=== PATIENT | female | born 1965 | race Caucasian/White ===

== ENCOUNTER 2016-10-02 17:03 | Emergency (ER) | payer OTHER ==
[~2016-10-02] VITALS: Ht 175.3 cm; Wt 153.6 kg
[~2016-10-02 17:03] MED LIST: ADVIL,NUPRIN,M200 MG PO; ALLOPURINOL300 MG PO; BENICAR HCT 201 EACH PO; BENICAR40 MG PO; COLCRYS0.6 MG PO; FUROSEMIDE40 MG; INDOMETHACIN50 MG PO; LASIX40 MG PO; LIDODERM 5% P1 PATCH TD; LISINOPRIL-HCT1 EAC3 PO; VALIUM2 MG PO
[2016-10-02 17:38] LABS: MCH 28.5 PG (29.0-34.0); MCHC 33.1 G/DL (30.0-36.0); MEAN PLAT.VOLUME 8.5 uM^3 (9.5-12.4); PLATELET COUNT 247 K/uL (156-360); RED BLOOD COUNT 4.07 M/uL (3.80-5.20); WHITE BLOOD COUNT 7.9 K/uL (4.1-10.2)
[2016-10-02 17:48] LABS: CHLORIDE 108 mEq/L (99-109); POTASSIUM 4.1 mEq/L (3.7-5.4); SODIUM 140 mEq/L (136-147)
[2016-10-02 17:50] LABS: GLUCOSE 126 mg/dL (70-99)
[2016-10-02 17:51] LABS: ANION GAP 13 MEQ/L (2-14)
[2016-10-02 17:54] LABS: GFR ESTIMATE (CALCULATED) 42 mL/min/
[2016-10-02 17:55] LABS: UREA NITROGEN (BUN) 37 mg/dL (9-23)
[2016-10-02 17:57] LABS: TROP-I INTERPRETATION NEGATIVE; TROPONIN-I < 0.01 ng/mL (0.0-0.30)
[2016-10-02 19:46] LABS: TROP-I INTERPRETATION NEGATIVE; TROPONIN-I < 0.01 ng/mL (0.0-0.30)
[2016-10-02] MEDS ORDERED: ULTRACET1 TABLET PO (20:06)
[2016-10-02 20:25] VITALS: BP 119/72
== END 2016-10-02 20:27 | disposition home or self-care (01) ==
LOC: EME 17:03
PROVIDERS: Physician Assistant Medical
DX: S46.912A Strain of unspecified muscle, fascia and tendon at shoulder and upper arm level, left arm, initial encounter (principal); X58.XXXA Exposure to other specified factors, initial encounter; Y93.84 Activity, sleeping; R00.0 Tachycardia, unspecified; I10 Essential (primary) hypertension
CPT/HCPCS: 71020; 80048; 84484; 85027; 93005; 99281; 99284

== ENCOUNTER 2017-09-07 16:27 | Emergency (ER) | payer OTHER ==
[~2017-09-07] VITALS: Ht 175.3 cm; Wt 149.4 kg
[~2017-09-07 16:27] MED LIST changes: +ULTRACET1 TABLET PO
[2017-09-07 17:28] LABS: HEMATOCRIT 31.1 % (36.0-46.0); HEMOGLOBIN 10.3 G/DL (11.9-15.5); MCH 30.7 PG (29.0-34.0); MCHC 33.1 G/DL (30.0-36.0); MCV 92.8 FL (83-99); PLATELET COUNT 271 K/uL (156-360); RBC DIS.WIDTH-CV 16.4 % (11.8-14.6); RED BLOOD COUNT 3.35 M/uL (3.80-5.20); WHITE BLOOD COUNT 12.9 K/uL (4.1-10.2)
[2017-09-07 17:30] VITALS: BP 106/68
[2017-09-07 17:35] LABS: CHLORIDE 101 mEq/L (99-109); POTASSIUM 4.5 mEq/L (3.7-5.4); SODIUM 138 mEq/L (136-147)
[2017-09-07 17:37] LABS: GLUCOSE 186 mg/dL (70-99)
[2017-09-07 17:41] LABS: CREATININE 1.2 mg/dL (0.6-1.3); GFR ESTIMATE (CALCULATED) 50 mL/min/
[2017-09-07 17:42] LABS: UREA NITROGEN (BUN) 27 mg/dL (9-23)
[2017-09-07 19:32] LABS: APPEARANCE SL.HAZY ((CLEAR)); BILIRUBIN NEGATIVE; BLOOD MODERATE; COLOR YELLOW ((YELLOW)); GLUCOSE (STRIP) NEGATIVE; KETONES NEGATIVE; LEUKOCYTES SMALL; NITRITE NEGATIVE; PROTEIN (STRIP) NEGATIVE; SPECIFIC GRAVITY 1.013 (1.000-1.030)
[2017-09-07 19:43] LABS: BACTERIA RARE /HPF; EPITHELIAL CELLS 1+ /HPF; HYALINE CASTS 15-20 /LPF; MUCUS TRACE /LPF; RED BLOOD CELLS 20-30 /HPF (0-5)
[2017-09-07] MEDS ORDERED: ROBAXIN750 MG PO (20:00)
[2017-09-07] MEDS ORDERED: ULTRAM50 MG PO (20:00)
== END 2017-09-07 22:07 | disposition home or self-care (01) ==
LOC: EME 16:27
PROVIDERS: Emergency Medicine
DX: S39.012A Strain of muscle, fascia and tendon of lower back, initial encounter (principal); G89.29 Other chronic pain; E66.01 Morbid (severe) obesity due to excess calories; Z68.42 Body mass index [BMI] 45.0-49.9, adult; I10 Essential (primary) hypertension; E11.9 Type 2 diabetes mellitus without complications; M10.9 Gout, unspecified; Z86.14 Personal history of Methicillin resistant Staphylococcus aureus infection; Z87.440 Personal history of urinary (tract) infections; Z90.49 Acquired absence of other specified parts of digestive tract; Z88.0 Allergy status to penicillin
CPT/HCPCS: 80048; 81003; 85027; 99281; 99284

== ENCOUNTER 2017-12-10 18:01 | Emergency (ER) | payer OTHER ==
[~2017-12-10] VITALS: Ht 175.3 cm; Wt 149.1 kg
[~2017-12-10 18:01] MED LIST changes: +ROBAXIN750 MG PO; +ULTRAM50 MG PO
[2017-12-10] MEDS ORDERED: TRAMADOL HCL50 MG PO (22:13)
[2017-12-10 22:57] VITALS: BP 112/82
== END 2017-12-10 22:57 | disposition home or self-care (01) ==
LOC: EME 18:01
DX: M79.641 Pain in right hand (principal); M79.642 Pain in left hand; M25.532 Pain in left wrist; M25.531 Pain in right wrist; E11.9 Type 2 diabetes mellitus without complications; I10 Essential (primary) hypertension; Z87.440 Personal history of urinary (tract) infections; Z86.14 Personal history of Methicillin resistant Staphylococcus aureus infection; Z88.0 Allergy status to penicillin
CPT/HCPCS: 85651; 86038; 86140; 86215 90; 86235; 99281; 99283